=== PATIENT | female | born 1955 | race Caucasian/White ===

== ENCOUNTER 2018-03-14 06:23 | Day surgery (SDC) | payer OTHER ==
[2018-03-14] MEDS ORDERED: LIDOCAINE 2% (SDV) 5 ML INJ (07:37)
[2018-03-14] MEDS ORDERED: PROPOFOL 60 ML (07:37)
== END 2018-03-14 11:19 | disposition home or self-care (01) ==
LOC: GIL 06:23
DX: Z12.11 Encounter for screening for malignant neoplasm of colon (principal); K64.4 Residual hemorrhoidal skin tags; K64.8 Other hemorrhoids; K63.89 Other specified diseases of intestine; I10 Essential (primary) hypertension; E11.9 Type 2 diabetes mellitus without complications; E78.5 Hyperlipidemia, unspecified
CPT/HCPCS: 45378; 82962